=== PATIENT | male | born 1965 | race Caucasian/White ===

== ENCOUNTER 2024-03-23 23:35 | Emergency (ER) | payer BC, OTHER ==
[~2024-03-23] VITALS: Ht 175.3 cm; Wt 67.1 kg
[2024-03-24 00:11] LABS: BASOPHILS % (AUTO) 0.2 % (0.0-2.0); EOSINOPHILS % (AUTO) 0.5 % (0.0-7.0); HEMATOCRIT 39.2 % (36.7-47.1); HEMOGLOBIN 13.1 g/dL (12.5-16.3); LYMPHOCYTES # (AUTO) 1.4 K/uL (0.8-4.8); LYMPHOCYTES % (AUTO) 15.9 % (20.5-51.5); MEAN CORPUSCULAR HEMOGLOBIN 30.9 uug (23.8-33.4); MEAN CORPUSCULAR HGB CONC 34 g/dL (32.5-36.3); MEAN CORPUSCULAR VOLUME 92.2 fL (73.0-96.2); MONOCYTES # (AUTO) 0.8 K/uL (0.1-1.30); MONOCYTES % (AUTO) 9.4 % (0.0-11.0); NEUTROPHILS # (AUTO) 6.4 K/uL (1.8-8.9); PLATELET COUNT (AUTO) 241 K/uL (152-348); RED BLOOD CELL COUNT(AUTO) 4.25 MIL/uL (4.06-5.63); RED CELL DISTRIBUTION WIDTH 13.6 % (12.1-16.2); WHITE BLOOD COUNT (AUTO) 8.6 K/uL (3.6-10.2)
[2024-03-24 00:12] LABS: DIFFERENTIAL COMMENT 1
[2024-03-24] MEDS ORDERED: ONDANSETRON 4 MG/2 ML VIAL ONE (00:12)
[2024-03-24] MEDS ORDERED: HYDROMORPHONE 1 MG/1 ML DISP.SYRIN ONE ×3 (00:12→01:50)
[2024-03-24] MEDS ORDERED: PANTOPRAZOLE SODIUM 40 MG VIAL ONE (00:12)
[2024-03-24] MEDS ORDERED: LORAZEPAM 2 MG/1 ML VIAL ONE (00:13)
[2024-03-24 00:19] LABS: CALCIUM 9.7 mg/dL (8.5-10.1); CARBON DIOXIDE 32 mmol/L (21-32); CHLORIDE 97 mmol/L (98-107); CREATININE 0.9 mg/dL (0.6-1.3); GLUCOSE 90 mg/dL (74-106); POTASSIUM 5.1 mmol/L (3.5-5.1); SODIUM SERUM 136 mmol/L (136-145); UREA NITROGEN, BLOOD 15 mg/dL (7-18)
[2024-03-24] MEDS: PANTOPRAZOLE SODIUM 40 MG VIAL IV ONE (00:24)
[2024-03-24] MEDS: HYDROMORPHONE 1 MG/1 ML DISP.SYRIN IV ONE ×3 (00:24→01:56)
[2024-03-24] MEDS: IV NORMAL SALINE 1000 ML BAG IV ONE (00:24)
[2024-03-24] MEDS: LORAZEPAM 2 MG/1 ML VIAL IV ONE (00:24)
[2024-03-24] MEDS: ONDANSETRON 4 MG/2 ML VIAL IV ONE (00:24)
[2024-03-24 00:27] LABS: ALANINE AMINOTRANSFERASE 27 U/L (16-63); ALBUMIN 3.7 g/dL (3.4-5.0); ALKALINE PHOSPHATASE 128 U/L (50-136); ASPARTATE AMINOTRANSFERASE 24 U/L (15-37); BILIRUBIN,DIRECT 0.1 mg/dL (0.0-0.2); BILIRUBIN,TOTAL 0.4 mg/dL (0.2-1.0); LIPASE 39 U/L (16-77)
[2024-03-24] MEDS ORDERED: SWABABLE VALVE TRANSFER SET EA MC ONE (00:31)
[2024-03-24] MEDS ORDERED: IOHEXOL 300MG/ML 100 ML INFUS..BTL ONE (00:31)
[2024-03-24] MEDS ORDERED: IV NORMAL SALINE 250 ML IV ONE (00:31)
[2024-03-24] MEDS ORDERED: OXYC-133 PO (01:55)
[2024-03-24] MEDS ORDERED: HYDR-3980 PO (02:22)
[2024-03-24 02:33] VITALS: BP 120/89; O2SAT 99
[2024-03-25] MEDS ORDERED: LINA145C PO (21:14)
[2024-03-25] MEDS ORDERED: OXYC10TA49 PO ×2 (21:15→21:17)
[2024-03-25] MEDS ORDERED: METO-295 PO (21:15)
== END 2024-03-24 02:34 ==
LOC: ER 23:37
DX: R10.31 Right lower quadrant pain (principal); R10.32 Left lower quadrant pain; R07.89 Other chest pain; K59.00 Constipation, unspecified; R94.31 Abnormal electrocardiogram [ECG] [EKG]; F32.A Depression, unspecified
CPT/HCPCS: 99285; 71045; 80076; 80048; 83690; 85025; 84484 ×2; 36415 ×2; 74177; 96374; 96375; 96361; 93005; 96376; J2060; J2405; Q9967; J2470; J1171 ×3; J7040; A4606; A4663

== ENCOUNTER 2024-03-25 18:55 | Emergency (ER) | payer BC ==
[~2024-03-25] VITALS: Ht 175.3 cm; Wt 67.1 kg
[~2024-03-25 18:55] MED LIST: HYDR-3980 PO
[2024-03-25] MEDS ORDERED: METOCLOPRAMIDE HCL 10 MG/2 ML VIAL ONE (19:44)
[2024-03-25] MEDS ORDERED: SIMETHICONE 80 MG TAB.CHEW ONE (19:44)
[2024-03-25] MEDS ORDERED: FAMOTIDINE. 20 MG/2 ML VIAL IV ONE (19:45)
[2024-03-25] MEDS ORDERED: HYDROMORPHONE 1 MG/1 ML DISP.SYRIN ONE ×2 (19:46→21:17)
[2024-03-25] MEDS ORDERED: LORAZEPAM 2 MG/1 ML VIAL ONE (19:47)
[2024-03-25] MEDS: IV NORMAL SALINE 500 ML BAG IV ONE (19:50)
[2024-03-25 19:55] LABS: BASOPHILS % (AUTO) 0.6 % (0.0-2.0); EOSINOPHILS # (AUTO) 0.1 K/uL (0.0-0.7); EOSINOPHILS % (AUTO) 1.4 % (0.0-7.0); HEMATOCRIT 35.5 % (36.7-47.1); HEMOGLOBIN 11.9 g/dL (12.5-16.3); LYMPHOCYTES # (AUTO) 1.7 K/uL (0.8-4.8); LYMPHOCYTES % (AUTO) 27.9 % (20.5-51.5); MEAN CORPUSCULAR HGB CONC 34 g/dL (32.5-36.3); MEAN CORPUSCULAR VOLUME 92.2 fL (73.0-96.2); MONOCYTES # (AUTO) 0.8 K/uL (0.1-1.30); MONOCYTES % (AUTO) 13.7 % (0.0-11.0); NEUTROPHILS # (AUTO) 3.4 K/uL (1.8-8.9); NEUTROPHILS % (AUTO) 56.4 % (38.5-71.5); PLATELET COUNT (AUTO) 248 K/uL (152-348); RED BLOOD CELL COUNT(AUTO) 3.85 MIL/uL (4.06-5.63); RED CELL DISTRIBUTION WIDTH 13.5 % (12.1-16.2)
[2024-03-25 19:56] LABS: DIFFERENTIAL COMMENT 1
[2024-03-25] MEDS: METOCLOPRAMIDE HCL 10 MG/2 ML VIAL IV ONE (20:03)
[2024-03-25] MEDS: FAMOTIDINE. 20 MG/2 ML VIAL IV ONE (20:03)
[2024-03-25] MEDS: SIMETHICONE 80 MG TAB.CHEW PO ONE (20:03)
[2024-03-25] MEDS: HYDROMORPHONE 1 MG/1 ML DISP.SYRIN IV ONE ×3 (20:03→21:32)
[2024-03-25] MEDS: LORAZEPAM 2 MG/1 ML VIAL IV ONE (20:03)
[2024-03-25 20:09] LABS: ALBUMIN 3.8 g/dL (3.4-5.0); BILIRUBIN,DIRECT 0.1 mg/dL (0.0-0.2); BILIRUBIN,TOTAL 0.3 mg/dL (0.2-1.0); CALCIUM 9.6 mg/dL (8.5-10.1); CREATININE 0.9 mg/dL (0.6-1.3); POTASSIUM 4.6 mmol/L (3.5-5.1); TOTAL PROTEIN, SERUM 7.2 g/dL (6.4-8.2)
[2024-03-25] MEDS ORDERED: HYDROMORPHONE 2 MG/1 ML DISP.SYRIN ONE (20:39)
[2024-03-25] MEDS ORDERED: LINA145C PO (21:14)
[2024-03-25] MEDS ORDERED: OXYC10TA49 PO ×2 (21:15→21:17)
[2024-03-25] MEDS ORDERED: METO-295 PO (21:15)
[2024-03-25] MEDS ORDERED: diphenhydrAMINE 50 MG/1 ML VIAL ONE (21:16)
[2024-03-25 21:22] LABS: *BILIRUBIN,URIN NEGATIVE (NEGATIVE); *BLOOD, URINE NEGATIVE (NEGATIVE); *CLARITY,URINE CLEAR (CLEAR); *COLOR,URINE YELLOW (YELLOW); *KETONES,URINE NEGATIVE (NEGATIVE); *PROTEIN,URINE NEGATIVE (NEGATIVE); *UROBILINOGEN,URINE 0.2 E.U./dl (NORMAL); LEUKOCYTE ESTERASE ,URINE NEGATIVE (NEGATIVE); NITRITE, URINE NEGATIVE (NEGATIVE); UGLUCOSE NEGATIVE (NEGATIVE)
[2024-03-25] MEDS: diphenhydrAMINE 50 MG/1 ML VIAL IV ONE (21:32)
[2024-03-25 21:33] VITALS: BP 136/82; TEMP 98.2; O2SAT 98
== END 2024-03-25 21:34 | disposition home or self-care (01) ==
LOC: ER 18:55
DX: R10.84 Generalized abdominal pain (principal); K59.00 Constipation, unspecified; R03.0 Elevated blood-pressure reading, without diagnosis of hypertension; F32.A Depression, unspecified; Z79.899 Other long term (current) drug therapy
CPT/HCPCS: 99285; 96374; 96375; 76700; 96361; 80076; 80048; 81003; 83690; 85025; 36415; 96376; J1200; J3490; J2060; J2765; J1171 ×3; J7040; A4606; A4663